=== PATIENT | male | born 1990 | race Caucasian/White ===

== ENCOUNTER 2018-05-24 15:54 | Emergency (ER) | payer SELFPAY ==
[2018-05-24 16:01] VITALS: BP 127/69
[2018-05-24] MEDS ORDERED: BUFFERED LIDOCAINE 10 ML SYRINGE SUBQ STA (16:24)
--- NOTE | 2018-05-24 16:25 | ED Physician Documentation ---
PD HPI UPPER EXT INJURY - Stated complaint Stated Complaint: FB IN FINGER - Chief complaint Chief Complaint: Laceration - History obtained from History obtained from: Patient - History of Present Illness Location: Right, Finger (index) Type of injury: Other (fishhook) Where injury occurred: Home Timing - onset: Today Timing - details: Abrupt onset, Still present Improved by: Rest Worsened by: Moving, Palpating Associated symptoms: No: Weakness, Numbness, Tingling Similar symptoms before: Has not had sx before Recently seen: Not recently seen PD PAST MEDICAL HISTORY - Past Medical History Past Medical History: No - Past Surgical History Past Surgical History: Yes General: Appendectomy - Allergies Allergies/Adverse Reactions: Allergies Allergy/AdvReac Type Severity Reaction Status Date / Time No Known Drug Allergies Allergy Verified 05/24/18 16:01 - Social History Does the pt smoke?: No Smoking Status: Never smoker Does the pt drink ETOH?: Yes - Immunizations Immunizations are current?: Yes PD ED PE NORMAL - Vitals Vital signs reviewed: Yes (normal ) - General General: Alert and oriented X 3, No acute distress, Well developed/nourished - Respiratory Respiratory: No respiratory distress - Derm Derm: Normal color, Warm and dry - Extremities Extremities: No deformity, No edema, Other (28-year-old male has a barbed fishhook in his right index finger.) Results - Vitals Vitals: Vital Signs - 24 hr 05/24/18 15:58 Temperature 36.9 C Heart Rate 61 Respiratory 16 Rate Blood Pressure 127/69 O2 Saturation 95 Oxygen O2 Source Room air PD MEDICAL DECISION MAKING - ED course Complexity details: considered differential, d/w patient ED course: left the department without instructions and the fish hook is left here. - Sepsis Event Vital Signs: Vital Signs - 24 hr 05/24/18 15:58 Temperature 36.9 C Heart Rate 61 Respiratory 16 Rate Blood Pressure 127/69 O2 Saturation 95 Oxygen O2 Source Room air Departure - Departure Disposition: ED Elope Condition: Stable Discharge Date/Time: 05/24/18 16:30
== END 2018-05-24 16:30 | disposition left against medical advice (07) ==
LOC: ED 15:54
DX: S60.450A Superficial foreign body of right index finger, initial encounter (principal); W45.8XXA Other foreign body or object entering through skin, initial encounter; Y92.009 Unspecified place in unspecified non-institutional (private) residence as the place of occurrence of the external cause
CPT/HCPCS: 99282